=== PATIENT | male | born 1935 | race Caucasian/White ===

== ENCOUNTER 2023-10-22 04:31 | Inpatient (IN) | payer OTHER ==
[2023-10-22] MEDS ORDERED: SODIUM CHLORIDE 1,361 ML IV ONE (04:48)
[2023-10-22] MEDS ORDERED: CALCIUM GLUCONATE 10% - 1,000 MG/10 ML VIAL IVPUSH ONE (04:53)
[2023-10-22] MEDS ORDERED: RAPID SEQUENCE INTUBATION KIT NR ONE (04:57)
[2023-10-22] MEDS ORDERED: CALCIUM GLUCONATE 10% - 1,000 MG/10 ML VIAL ONE (05:00)
[2023-10-22] MEDS ORDERED: VANCOMYCIN 1,000 MG in DEXTROSE 5%-WATER - 250 ML IVPB ONE (05:01)
[2023-10-22] MEDS ORDERED: AZITHROMYCIN IVPB 500 MG in DEXTROSE 5%-WATER - 250 ML IVPB ONE (05:01)
[2023-10-22] MEDS ORDERED: CEFTRIAXONE 1,000 MG in DEXTROSE 5%-WATER - 50 ML IVPB ONE (05:01)
[2023-10-22] MEDS ORDERED: PIPERACILLIN/TAZOB 4.5 GM 4.5 GM in DEXTROSE 5%-WATER 100 ML IVPB ONE (05:01)
[2023-10-22] MEDS ORDERED: PIPERACILLIN/TAZOB 3.375 GM 3.375 GM in DEXTROSE 5%-WATER - 50 ML IVPB ONE (05:06)
[2023-10-22] MEDS ORDERED: PIPERACILLIN/TAZOB 3.375 GM 3.375 GM/50 ML BAG IVPB ONE (05:06)
[2023-10-22 05:07] LABS: MEAN PLT VOLUME 8.1 fl (7.5-11.1)
[2023-10-22] MEDS ORDERED: VANCOMYCIN 1 GRAM (PRE-DOCKED) 1,000 MG/250 ML BAG IVPB ONE (05:18)
[2023-10-22 05:25] LABS: CHLORIDE 119 mmol/L (98-107); POTASSIUM 5.5 mmol/L (3.5-5.1); SODIUM 148 mmol/L (136-145)
[2023-10-22 05:27] LABS: HEMATOCRIT 35.2 % (35.4-49); HEMOGLOBIN 11.3 GM/dL (11.7-16.9); MCH 28.8 pg (25.7-33.7); MCHC 32.1 g/dl (32.0-35.9); MEAN CELL VOLUME 89.6 fl (80-96); PLATELET COUNT 363 10^3/uL (134-434); RBC 3.92 M/mm3 (4.00-5.60); RDW 18.9 % (11.9-15.9); WHITE BLOOD COUNT 23.6 K/mm3 (4.0-10.0)
[2023-10-22 05:27] LABS: ALBUMIN 2.9 g/dl (3.4-5.0); ANION GAP 13 mmol/L (4-13); CALCIUM 10.5 mg/dL (8.5-10.1); CO2 16 mmol/L (21-32); GLUCOSE,RANDOM 115 mg/dL (74-106)
[2023-10-22 05:31] LABS: CREATININE 6.8 mg/dL (0.55-1.3); SGOT/AST 7 U/L (15-37); SGPT/ALT 6 U/L (13-61)
[2023-10-22 05:33] LABS: BILIRUBIN,TOTAL 0.3 mg/dL (0.2-1); TOT PROT 7.2 g/dl (6.4-8.2)
[2023-10-22 05:34] LABS: ALK PHOS 71 U/L (45-117)
[2023-10-22 05:37] LABS: INR 1.32 (0.83-1.09); PROTHROMBIN TIME (PATIENT) 15.3 SEC (9.7-13.0)
[2023-10-22 05:58] LABS: EPI CELLS 24 /uL (0-25.1); HYALINE CASTS 2 /uL (0-3.1); URINE APPEARANCE CLOUDY; URINE BACTERIA 2 /uL (0-1359); URINE BILIRUBIN NEGATIVE (NEGATIVE); URINE COLOR YELLOW; URINE GLUCOSE (UA) NEGATIVE (NEGATIVE); URINE KETONE NEGATIVE (NEGATIVE); URINE LEUK ESTERASE NEGATIVE (NEGATIVE); URINE NITRITE NEGATIVE (NEGATIVE); URINE PROTEIN 2+ (NEGATIVE); URINE RBC 20 /uL (0-23.9); URINE UROBILINOGEN 0.2 mg/dL (0.2-1.0); URINE WBC 30 /uL (0-25.8)
[2023-10-22 06:06] LABS: VENOUS BASE EXCESS -18.3 mmol/L (-2-2); VENOUS O2 SATURATION 69.4 % (70-80); VENOUS PCO2 62.4 mmHg (38-52)
[2023-10-22 06:27] LABS: VENOUS PH 6.96 (7.310-7.410)
[2023-10-22] MEDS ORDERED: ALBUTEROL SO4 0.083% IH SOL 2.5 MG/3 ML VIAL.NEB. NEB ONE ×2 (06:49→07:39)
[2023-10-22] MEDS ORDERED: SODIUM BICARBONATE 8.4% - 150 MEQ in DEXTROSE 5%-WATER - 950 ML IVPB SCH (07:00)
[2023-10-22 07:04] LABS: BLOOD UREA NITROGEN 167.8 mg/dL (7-18)
[2023-10-22] MEDS ORDERED: HEPARIN NA (PORCINE) 5,000 UNITS/ML 1ML VIAL SQ SCH (07:15)
[2023-10-22] MEDS ORDERED: DEXTROSE 5%-WATER - 1,000 ML IV SCH (07:30)
[2023-10-22] MEDS ORDERED: HEPARIN NA (PORCINE) 5,000 UNITS/ML 1ML VIAL ONE (07:39)
[2023-10-22 08:26] LABS: ARTERIAL BLOOD GAS BASE EXCESS -15.7 mmol/L (-2-2); ARTERIAL BLOOD GAS PO2 200.2 mmHg (80-100)
[2023-10-22 08:27] LABS: ALLENS TEST POSITIVE
[2023-10-22 08:28] LABS: VENT MODE EPAP6; VENT RATE 14
[2023-10-22 08:29] LABS: ARTERIAL BLOOD GAS pH 7.136 (7.350-7.450)
[2023-10-22 08:55] LABS: VENOUS O2 SATURATION 93.4 % (70-80); VENOUS PCO2 43.5 mmHg (38-52)
[2023-10-22 08:57] LABS: VENOUS PH 7.072 (7.310-7.410)
[2023-10-22] MEDS ORDERED: SODIUM BICARBONATE 8.4% - 150 MEQ in DEXTROSE 5%-WATER - 1,000 ML IV SCH (09:15)
[2023-10-22 09:57] LABS: ANISOCYTOSIS 1+; MACROCYTOSIS 0
[2023-10-22] MEDS ORDERED: PANTOPRAZOLE SODIUM 40 MG VIAL IVPUSH SCH (10:00)
[2023-10-22] MEDS ORDERED: SODIUM BICARBONATE 8.4% 50 MEQ/50 ML VIAL ONE (11:37)
[2023-10-22] MEDS ORDERED: SODIUM BICARBONATE 8.4% 50 MEQ/50 ML DISP.SYRIN IVPUSH ONE (11:59)
[2023-10-22] MEDS ORDERED: SODIUM CHLORIDE 250 ML IV PRN ×2 (11:59→13:00)
[2023-10-22] MEDS ORDERED: SODIUM CHLORIDE 1,000 ML IV STA (11:59)
[2023-10-22] MEDS: NOREPINEPHRINE BITARTRATE/D5W 8 MG/250 ML BAG IVPB SCH (12:48)
[2023-10-22] MEDS ORDERED: MUPIROCIN 2% TOPICAL OINTMENT FOR DECOLONIZATION NS SCH (13:30)
[2023-10-22 16:35] LABS: ARTERIAL BLD GAS O2 SATURATION 99.4 % (95-98); ARTERIAL BLOOD GAS BASE EXCESS -0.3 mmol/L (-2-2); ARTERIAL BLOOD GAS PO2 211.2 mmHg (80-100); ARTERIAL BLOOD GAS pH 7.411 (7.350-7.450)
[2023-10-22 16:42] LABS: POTASSIUM 3.3 mmol/L (3.5-5.1)
[2023-10-22 16:47] LABS: CREATININE 2.6 mg/dL (0.55-1.3)
[2023-10-22 16:51] LABS: BLOOD UREA NITROGEN 48.4 mg/dL (7-18); CALCIUM 7.9 mg/dL (8.5-10.1)
[2023-10-22] MEDS ORDERED: SODIUM CHLORIDE 1,000 ML IV SCH (17:00)
[2023-10-22] MEDS ORDERED: LACTATED RINGERS SOLUTION 1,000 ML/1,000 ML INFUS.BAG IV SCH (17:00)
[2023-10-22] MEDS: PIPERACILLIN/TAZOB 2.25 GM 2.25 GM in DEXTROSE 5%-WATER - 50 ML IVPB SCH (17:09)
[2023-10-22] MEDS: HEPARIN NA (PORCINE) 5,000 UNITS/ML 1ML VIAL SQ SCH (21:24)
[2023-10-22] MEDS: CHLORHEXIDINE GLUCONATE 4% CLEANSER FOR DECOLONIZATION TP SCH (21:25)
[2023-10-22] MEDS: MUPIROCIN 2% TOPICAL OINTMENT FOR DECOLONIZATION NS SCH (21:26)
[2023-10-22] MEDS ORDERED: CHLORHEXIDINE GLUCONATE 4% CLEANSER FOR DECOLONIZATION TP SCH (22:00)
[2023-10-22 22:14] LABS: ARTERIAL BLD GAS O2 SATURATION 98.6 % (95-98); ARTERIAL BLOOD GAS BASE EXCESS 0.4 mmol/L (-2-2); ARTERIAL BLOOD GAS PO2 128.8 mmHg (80-100); ARTERIAL BLOOD GAS pH 7.408 (7.350-7.450)
[2023-10-23] MEDS: PIPERACILLIN/TAZOB 2.25 GM 2.25 GM in DEXTROSE 5%-WATER - 50 ML IVPB SCH ×3 (02:07→18:48)
[2023-10-23] MEDS ORDERED: DEXTROSE 50%-WATER 25 GM/50 ML DISP.SYRIN ONE (04:19)
[2023-10-23] MEDS ORDERED: DEXTROSE 50%-WATER 25 GM/50 ML DISP.SYRIN IVPUSH ONE (05:29)
[2023-10-23 06:14] LABS: ARTERIAL BLOOD GAS BASE EXCESS -2.1 mmol/L (-2-2); ARTERIAL BLOOD GAS PO2 160.6 mmHg (80-100); ARTERIAL BLOOD GAS pH 7.382 (7.350-7.450)
[2023-10-23 06:28] LABS: VENT MODE S/T; VENT RATE 14
[2023-10-23] MEDS ORDERED: DEXTROSE 50%-WATER - 25 GM/50 ML VIAL IVPUSH ONE (06:55)
[2023-10-23 07:00] LABS: HEMATOCRIT 25.1 % (35.4-49); HEMOGLOBIN 8.3 GM/dL (11.7-16.9); MCHC 33.2 g/dl (32.0-35.9); MEAN CELL VOLUME 87.2 fl (80-96); MEAN PLT VOLUME 7.9 fl (7.5-11.1); PLATELET COUNT 203 10^3/uL (134-434); RBC 2.88 M/mm3 (4.00-5.60); RDW 18.2 % (11.9-15.9); WHITE BLOOD COUNT 15.4 K/mm3 (4.0-10.0)
[2023-10-23 07:11] LABS: INR 1.69 (0.83-1.09); PROTHROMBIN TIME (PATIENT) 19.5 SEC (9.7-13.0)
[2023-10-23 07:13] LABS: ACTIVATED PTT 49.1 SECONDS (25.2-36.5)
[2023-10-23] MEDS: DEXTROSE 5%-NORMAL SALINE 1,000 ML IV SCH (07:14)
[2023-10-23 07:18] LABS: CHLORIDE 108 mmol/L (98-107); POTASSIUM 4.2 mmol/L (3.5-5.1); SODIUM 143 mmol/L (136-145)
[2023-10-23 07:35] LABS: ANION GAP 12 mmol/L (4-13); CALCIUM 8.1 mg/dL (8.5-10.1); CO2 24 mmol/L (21-32); GLUCOSE,RANDOM 178 mg/dL (74-106); MAGNESIUM 1.5 mg/dL (1.8-2.4)
[2023-10-23 07:38] LABS: CREATININE 4.1 mg/dL (0.55-1.3); PHOSPHOROUS 6.5 mg/dL (2.5-4.9); SGOT/AST 11 U/L (15-37)
[2023-10-23 07:39] LABS: BILIRUBIN,TOTAL 0.3 mg/dL (0.2-1); TOT PROT 5.4 g/dl (6.4-8.2)
[2023-10-23 07:40] LABS: ALK PHOS 43 U/L (45-117)
[2023-10-23 07:49] LABS: ALBUMIN 2.3 g/dl (3.4-5.0); BLOOD UREA NITROGEN 74.1 mg/dL (7-18); SGPT/ALT < 6 U/L (13-61)
[2023-10-23] MEDS ORDERED: MAGNESIUM 2GM/50ML STERILE WATER IVPB IVPB ONE (08:45)
[2023-10-23 09:02] LABS: ANISOCYTOSIS 0; MACROCYTOSIS 0
[2023-10-23] MEDS: PANTOPRAZOLE SODIUM 40 MG VIAL IVPUSH SCH (09:24)
[2023-10-23] MEDS: HEPARIN NA (PORCINE) 5,000 UNITS/ML 1ML VIAL SQ SCH ×2 (09:24→21:14)
[2023-10-23] MEDS: MUPIROCIN 2% TOPICAL OINTMENT FOR DECOLONIZATION NS SCH ×2 (09:47→21:14)
[2023-10-23] MEDS ORDERED: MAGNESIUM SULFATE IN WATER 2 GM/50 ML IVPB IVPB ONE (10:00)
[2023-10-23 13:27] LABS: IRON SERUM 18 ug/dL (50-175); TOTAL IRON BINDING CAPACITY 133 ug/dL (250-450)
[2023-10-23] MEDS ORDERED: IRON SUCROSE INJECTION 300 MG in SODIUM CHLORIDE 235 ML IVPB ONE (15:00)
[2023-10-23] MEDS: NOREPINEPHRINE BITARTRATE/D5W 8 MG/250 ML BAG IVPB SCH (15:07)
[2023-10-23] MEDS: SCOPOLAMINE HYDROBROMIDE 1 PATCH PATCH.TD72 TD SCH (15:50)
[2023-10-23] MEDS ORDERED: EPOETIN ALFA-EPBX 20,000 UNIT/ML VIAL SQ ONE (16:08)
[2023-10-23] MEDS: CHLORHEXIDINE GLUCONATE 4% CLEANSER FOR DECOLONIZATION TP SCH (21:14)
[2023-10-24] MEDS: PIPERACILLIN/TAZOB 2.25 GM 2.25 GM in DEXTROSE 5%-WATER - 50 ML IVPB SCH ×3 (01:20→17:05)
[2023-10-24 06:53] LABS: ARTERIAL BLD GAS O2 SATURATION 98.2 % (95-98); ARTERIAL BLOOD GAS BASE EXCESS -11.3 mmol/L (-2-2); ARTERIAL BLOOD GAS PO2 146.6 mmHg (80-100)
[2023-10-24 07:00] LABS: VENT RATE 14
[2023-10-24] MEDS ORDERED: SODIUM CHLORIDE 250 ML IV PRN (07:00)
[2023-10-24 07:02] LABS: ARTERIAL BLOOD GAS pH 7.157 (7.350-7.450)
[2023-10-24 07:22] LABS: BASO % 0.1 % (0-2.0); EOS % 0.4 % (0-4.5); HEMATOCRIT 25.1 % (35.4-49); HEMOGLOBIN 8.1 GM/dL (11.7-16.9); LYMPH % 5.6 % (8-40); MCH 28.8 pg (25.7-33.7); MCHC 32.2 g/dl (32.0-35.9); MEAN CELL VOLUME 89.5 fl (80-96); NEUT % 89.9 % (42.8-82.8); PLATELET COUNT 181 10^3/uL (134-434); RBC 2.81 M/mm3 (4.00-5.60); RDW 18.3 % (11.9-15.9); WHITE BLOOD COUNT 13.9 K/mm3 (4.0-10.0)
[2023-10-24 08:10] LABS: CHLORIDE 114 mmol/L (98-107); POTASSIUM 4.8 mmol/L (3.5-5.1); SODIUM 148 mmol/L (136-145)
[2023-10-24 08:14] LABS: ANION GAP 10 mmol/L (4-13); CALCIUM 8.9 mg/dL (8.5-10.1); CO2 24 mmol/L (21-32); GLUCOSE,RANDOM 79 mg/dL (74-106); MAGNESIUM 2.3 mg/dL (1.8-2.4)
[2023-10-24 08:16] LABS: CREATININE 5.2 mg/dL (0.55-1.3); SGOT/AST 10 U/L (15-37)
[2023-10-24 08:19] LABS: ALK PHOS 36 U/L (45-117); BILIRUBIN,TOTAL 0.3 mg/dL (0.2-1); TOT PROT 5.1 g/dl (6.4-8.2)
[2023-10-24 08:34] LABS: SGPT/ALT < 6 U/L (13-61)
[2023-10-24 08:41] LABS: PHOSPHOROUS 8.5 mg/dL (2.5-4.9)
[2023-10-24] MEDS: DEXTROSE 5%-NORMAL SALINE 1,000 ML IV SCH (09:45)
[2023-10-24] MEDS: HEPARIN NA (PORCINE) 5,000 UNITS/ML 1ML VIAL SQ SCH ×2 (09:45→21:05)
[2023-10-24] MEDS: MUPIROCIN 2% TOPICAL OINTMENT FOR DECOLONIZATION NS SCH ×2 (09:45→21:05)
[2023-10-24] MEDS: PANTOPRAZOLE SODIUM 40 MG VIAL IVPUSH SCH (09:45)
[2023-10-24] MEDS ORDERED: IRON SUCROSE INJECTION 300 MG in SODIUM CHLORIDE 235 ML IVPB ONE (10:00)
[2023-10-24] MEDS ORDERED: EPOETIN ALFA-EPBX 10,000 UNIT/ML VIAL IVPUSH ONE (11:00)
[2023-10-24] MEDS: AMINO ACIDS 4.25%/D5W 1,000 ML IV SCH (11:39)
[2023-10-24] MEDS: methylPREDNISolone NA SUCC 40 MG/1 ML VIAL IVPUSH SCH (11:39)
[2023-10-24 12:00] LABS: ARTERIAL BLD GAS O2 SATURATION 99.3 % (95-98); ARTERIAL BLOOD GAS BASE EXCESS -3.2 mmol/L (-2-2); ARTERIAL BLOOD GAS PO2 231.3 mmHg (80-100); ARTERIAL BLOOD GAS pH 7.201 (7.350-7.450)
[2023-10-24 12:01] LABS: ALLENS TEST POSITIVE
[2023-10-24] MEDS: NOREPINEPHRINE BITARTRATE/D5W 8 MG/250 ML BAG IVPB SCH (13:10)
[2023-10-24 19:23] LABS: ARTERIAL BLD GAS O2 SATURATION 98.6 % (95-98); ARTERIAL BLOOD GAS BASE EXCESS -2.1 mmol/L (-2-2); ARTERIAL BLOOD GAS PO2 142.1 mmHg (80-100); ARTERIAL BLOOD GAS pH 7.331 (7.350-7.450)
[2023-10-24 19:28] LABS: VENT RATE 22
[2023-10-24] MEDS: CHLORHEXIDINE GLUCONATE 4% CLEANSER FOR DECOLONIZATION TP SCH (21:05)
[2023-10-25] MEDS: PIPERACILLIN/TAZOB 2.25 GM 2.25 GM in DEXTROSE 5%-WATER - 50 ML IVPB SCH ×3 (02:21→17:07)
[2023-10-25 05:34] LABS: ARTERIAL BLD GAS O2 SATURATION 97.3 % (95-98); ARTERIAL BLOOD GAS PO2 105.3 mmHg (80-100); ARTERIAL BLOOD GAS pH 7.308 (7.350-7.450)
[2023-10-25 05:39] LABS: VENT RATE 22
[2023-10-25 05:54] LABS: HEMATOCRIT 24.7 % (35.4-49); MCH 28.9 pg (25.7-33.7); MCHC 32.4 g/dl (32.0-35.9); MEAN PLT VOLUME 7.8 fl (7.5-11.1); PLATELET COUNT 182 10^3/uL (134-434); RBC 2.77 M/mm3 (4.00-5.60); WHITE BLOOD COUNT 18.9 K/mm3 (4.0-10.0)
[2023-10-25 06:25] LABS: POTASSIUM 4.2 mmol/L (3.5-5.1)
[2023-10-25 06:28] LABS: ALBUMIN 1.8 g/dl (3.4-5.0); CALCIUM 8.6 mg/dL (8.5-10.1); MAGNESIUM 2.2 mg/dL (1.8-2.4)
[2023-10-25 06:31] LABS: CREATININE 3.5 mg/dL (0.55-1.3); PHOSPHOROUS 6.7 mg/dL (2.5-4.9)
[2023-10-25 06:33] LABS: BILIRUBIN,TOTAL 0.3 mg/dL (0.2-1); TOT PROT 5.1 g/dl (6.4-8.2)
[2023-10-25 06:48] LABS: BLOOD UREA NITROGEN 57.6 mg/dL (7-18)
[2023-10-25 09:04] LABS: ANISOCYTOSIS 0; HELMET CELLS 0; HOWELL-JOLLY BODIES 0; MACROCYTOSIS 0; OVALOCYTE 0; ROULEAU 0; SICKELED CELLS 0; TARGET CELLS 0; TEAR DROP CELLS 0; TOXIC GRANULATION 0
[2023-10-25] MEDS: methylPREDNISolone NA SUCC 40 MG/1 ML VIAL IVPUSH SCH (09:07)
[2023-10-25] MEDS: PANTOPRAZOLE SODIUM 40 MG VIAL IVPUSH SCH (09:07)
[2023-10-25] MEDS: HEPARIN NA (PORCINE) 5,000 UNITS/ML 1ML VIAL SQ SCH ×2 (09:07→21:19)
[2023-10-25] MEDS: MUPIROCIN 2% TOPICAL OINTMENT FOR DECOLONIZATION NS SCH ×2 (09:08→21:18)
[2023-10-25] MEDS: AMINO ACIDS 4.25%/D5W 1,000 ML IV SCH (10:31)
[2023-10-25] MEDS ORDERED: DEXTROSE 50%-WATER - 25 GM/50 ML VIAL IVPUSH ONE (14:42)
[2023-10-25] MEDS ORDERED: DEXTROSE 50%-WATER 25 GM/50 ML DISP.SYRIN ONE (14:48)
[2023-10-25] MEDS: NOREPINEPHRINE BITARTRATE/D5W 8 MG/250 ML BAG IVPB SCH (21:18)
[2023-10-25] MEDS: CHLORHEXIDINE GLUCONATE 4% CLEANSER FOR DECOLONIZATION TP SCH (21:19)
[2023-10-26] MEDS: PIPERACILLIN/TAZOB 2.25 GM 2.25 GM in DEXTROSE 5%-WATER - 50 ML IVPB SCH ×3 (01:45→17:20)
[2023-10-26] MEDS ORDERED: SODIUM CHLORIDE 250 ML IV PRN (09:00)
[2023-10-26] MEDS: ALBUMIN HUMAN 25% 12.5 GM/50 ML VIAL IV SCH ×4 (09:00→10:30)
[2023-10-26] MEDS ORDERED: EPOETIN ALFA-EPBX 10,000 UNIT/ML VIAL IVPUSH ONE (09:00)
[2023-10-26 09:40] LABS: POTASSIUM 4.1 mmol/L (3.5-5.1)
[2023-10-26 09:42] LABS: HEMATOCRIT 21.7 % (35.4-49); HEMOGLOBIN 7.1 GM/dL (11.7-16.9); MCH 28.6 pg (25.7-33.7); MCHC 32.7 g/dl (32.0-35.9); MEAN CELL VOLUME 87.6 fl (80-96); MEAN PLT VOLUME 8.1 fl (7.5-11.1); PLATELET COUNT 173 10^3/uL (134-434); RBC 2.48 M/mm3 (4.00-5.60); RDW 17.6 % (11.9-15.9); WHITE BLOOD COUNT 19.1 K/mm3 (4.0-10.0)
[2023-10-26 09:43] LABS: ALBUMIN 1.8 g/dl (3.4-5.0); CALCIUM 8.6 mg/dL (8.5-10.1)
[2023-10-26 09:45] LABS: MAGNESIUM 1.7 mg/dL (1.8-2.4)
[2023-10-26 09:46] LABS: CREATININE 4.6 mg/dL (0.55-1.3); PHOSPHOROUS 6.5 mg/dL (2.5-4.9)
[2023-10-26 09:47] LABS: BILIRUBIN,TOTAL 0.3 mg/dL (0.2-1); TOT PROT 4.8 g/dl (6.4-8.2)
[2023-10-26 09:52] LABS: BLOOD UREA NITROGEN 97.7 mg/dL (7-18)
[2023-10-26] MEDS ORDERED: MAGNESIUM SULFATE IN WATER 2 GM/50 ML IVPB IVPB ONE (09:54)
[2023-10-26 10:47] LABS: ANISOCYTOSIS 2+; MACROCYTOSIS 0
[2023-10-26] MEDS: MUPIROCIN 2% TOPICAL OINTMENT FOR DECOLONIZATION NS SCH ×2 (11:04→22:19)
[2023-10-26] MEDS: methylPREDNISolone NA SUCC 40 MG/1 ML VIAL IVPUSH SCH (11:04)
[2023-10-26] MEDS: PANTOPRAZOLE SODIUM 40 MG VIAL IVPUSH SCH (11:05)
[2023-10-26] MEDS: HEPARIN NA (PORCINE) 5,000 UNITS/ML 1ML VIAL SQ SCH ×2 (11:05→22:19)
[2023-10-26] MEDS: AMINO ACIDS 4.25%/D5W 1,000 ML IV SCH (11:05)
[2023-10-26] MEDS: NOREPINEPHRINE BITARTRATE/D5W 8 MG/250 ML BAG IVPB SCH (11:06)
[2023-10-26] MEDS: SCOPOLAMINE HYDROBROMIDE 1 PATCH PATCH.TD72 TD SCH (17:20)
[2023-10-26] MEDS: CHLORHEXIDINE GLUCONATE 4% CLEANSER FOR DECOLONIZATION TP SCH (22:19)
[2023-10-27] MEDS: PIPERACILLIN/TAZOB 2.25 GM 2.25 GM in DEXTROSE 5%-WATER - 50 ML IVPB SCH ×3 (01:28→17:04)
[2023-10-27 07:11] LABS: HEMATOCRIT 22.2 % (35.4-49); HEMOGLOBIN 7.2 GM/dL (11.7-16.9); MCH 28.8 pg (25.7-33.7); MCHC 32.5 g/dl (32.0-35.9); MEAN CELL VOLUME 88.7 fl (80-96); MEAN PLT VOLUME 8.2 fl (7.5-11.1); PLATELET COUNT 173 10^3/uL (134-434); WHITE BLOOD COUNT 17.8 K/mm3 (4.0-10.0)
[2023-10-27 07:30] LABS: POTASSIUM 3.4 mmol/L (3.5-5.1)
[2023-10-27 08:02] LABS: ALBUMIN 1.7 g/dl (3.4-5.0); CALCIUM 8.1 mg/dL (8.5-10.1); MAGNESIUM 2.5 mg/dL (1.8-2.4)
[2023-10-27 08:05] LABS: CREATININE 3.3 mg/dL (0.55-1.3); PHOSPHOROUS 4.1 mg/dL (2.5-4.9)
[2023-10-27 08:07] LABS: BILIRUBIN,TOTAL 0.4 mg/dL (0.2-1); TOT PROT 4.7 g/dl (6.4-8.2)
[2023-10-27 08:18] LABS: BLOOD UREA NITROGEN 62.6 mg/dL (7-18)
[2023-10-27] MEDS: HEPARIN NA (PORCINE) 5,000 UNITS/ML 1ML VIAL SQ SCH ×2 (09:04→21:00)
[2023-10-27] MEDS: methylPREDNISolone NA SUCC 40 MG/1 ML VIAL IVPUSH SCH (09:04)
[2023-10-27] MEDS: PANTOPRAZOLE SODIUM 40 MG VIAL IVPUSH SCH (09:04)
[2023-10-27 09:16] LABS: ANISOCYTOSIS 3+; MACROCYTOSIS 0
[2023-10-27] MEDS: AMINO ACIDS 4.25%/D5W 1,000 ML IV SCH ×2 (09:27→10:57)
[2023-10-27] MEDS ORDERED: MUPIROCIN 2% TOPICAL OINTMENT FOR DECOLONIZATION NS SCH (10:00)
[2023-10-27] MEDS ORDERED: DEXTROSE 50%-WATER 25 GM/50 ML DISP.SYRIN ONE (11:13)
[2023-10-27] MEDS ORDERED: DEXTROSE 50%-WATER 25 GM/50 ML DISP.SYRIN IVPUSH ONE (11:30)
[2023-10-27] MEDS ORDERED: INSULIN (LEVEMIR) 100 UNITS/ML UNITS SQ ONE (16:19)
[2023-10-27] MEDS: CHLORHEXIDINE GLUCONATE 4% CLEANSER FOR DECOLONIZATION TP SCH (21:00)
[2023-10-28] MEDS: PIPERACILLIN/TAZOB 2.25 GM 2.25 GM in DEXTROSE 5%-WATER - 50 ML IVPB SCH ×2 (01:23→12:45)
[2023-10-28 07:34] LABS: HEMATOCRIT 24.4 % (35.4-49); HEMOGLOBIN 7.9 GM/dL (11.7-16.9); MCH 28.9 pg (25.7-33.7); MCHC 32.3 g/dl (32.0-35.9); MEAN CELL VOLUME 89.3 fl (80-96); MEAN PLT VOLUME 8.8 fl (7.5-11.1); PLATELET COUNT 208 10^3/uL (134-434); RBC 2.74 M/mm3 (4.00-5.60); RDW 16.2 % (11.9-15.9); WHITE BLOOD COUNT 23.8 K/mm3 (4.0-10.0)
[2023-10-28 08:01] LABS: POTASSIUM 3.5 mmol/L (3.5-5.1)
[2023-10-28 08:17] LABS: ALBUMIN 1.8 g/dl (3.4-5.0); CALCIUM 8.5 mg/dL (8.5-10.1); MAGNESIUM 2.7 mg/dL (1.8-2.4)
[2023-10-28 08:20] LABS: CREATININE 4.4 mg/dL (0.55-1.3)
[2023-10-28 08:22] LABS: BILIRUBIN,TOTAL 0.4 mg/dL (0.2-1); TOT PROT 5.2 g/dl (6.4-8.2)
[2023-10-28 08:24] LABS: BLOOD UREA NITROGEN 97.3 mg/dL (7-18)
[2023-10-28 08:54] LABS: ANISOCYTOSIS 1+; MACROCYTOSIS 1+; OVALOCYTE 1+
[2023-10-28] MEDS ORDERED: SODIUM CHLORIDE 250 ML IV PRN (09:00)
[2023-10-28 09:10] LABS: PLATELET ESTIMATE ADEQUATE
[2023-10-28] MEDS: AMINO ACIDS 4.25%/D5W 1,000 ML IV SCH ×2 (09:43→12:46)
[2023-10-28] MEDS ORDERED: EPOETIN ALFA-EPBX 10,000 UNIT/ML VIAL IVPUSH ONE (10:00)
[2023-10-28] MEDS: methylPREDNISolone NA SUCC 40 MG/1 ML VIAL IVPUSH SCH (12:46)
[2023-10-28] MEDS: PANTOPRAZOLE SODIUM 40 MG VIAL IVPUSH SCH (12:46)
[2023-10-28] MEDS: HEPARIN NA (PORCINE) 5,000 UNITS/ML 1ML VIAL SQ SCH ×2 (12:46→22:38)
[2023-10-28] MEDS ORDERED: PIPERACILLIN/TAZOBACTAM 2.25 GM VIAL IVPB ONE (22:15)
[2023-10-28] MEDS: CHLORHEXIDINE GLUCONATE 4% CLEANSER FOR DECOLONIZATION TP SCH (22:38)
[2023-10-29] MEDS: PIPERACILLIN/TAZOB 2.25 GM 2.25 GM in DEXTROSE 5%-WATER - 50 ML IVPB SCH ×3 (01:08→18:15)
[2023-10-29 06:52] LABS: HEMATOCRIT 23.8 % (35.4-49); HEMOGLOBIN 7.6 GM/dL (11.7-16.9); MCH 28.3 pg (25.7-33.7); MCHC 31.7 g/dl (32.0-35.9); MEAN CELL VOLUME 89.4 fl (80-96); MEAN PLT VOLUME 9.4 fl (7.5-11.1); PLATELET COUNT 250 10^3/uL (134-434); RBC 2.67 M/mm3 (4.00-5.60); RDW 15.8 % (11.9-15.9); WHITE BLOOD COUNT 23.8 K/mm3 (4.0-10.0)
[2023-10-29 07:03] LABS: POTASSIUM 3.5 mmol/L (3.5-5.1)
[2023-10-29 07:13] LABS: CALCIUM 8.1 mg/dL (8.5-10.1)
[2023-10-29 07:14] LABS: ALBUMIN 1.8 g/dl (3.4-5.0); MAGNESIUM 1.9 mg/dL (1.8-2.4)
[2023-10-29 07:17] LABS: CREATININE 3.2 mg/dL (0.55-1.3); PHOSPHOROUS 3.8 mg/dL (2.5-4.9)
[2023-10-29 07:18] LABS: TOT PROT 4.9 g/dl (6.4-8.2)
[2023-10-29 07:19] LABS: BILIRUBIN,TOTAL 0.4 mg/dL (0.2-1)
[2023-10-29 07:21] LABS: BLOOD UREA NITROGEN 59.7 mg/dL (7-18)
[2023-10-29] MEDS: HEPARIN NA (PORCINE) 5,000 UNITS/ML 1ML VIAL SQ SCH ×2 (11:34→21:38)
[2023-10-29] MEDS: methylPREDNISolone NA SUCC 40 MG/1 ML VIAL IVPUSH SCH (11:35)
[2023-10-29] MEDS: PANTOPRAZOLE SODIUM 40 MG VIAL IVPUSH SCH (11:35)
[2023-10-29 11:46] LABS: ANISOCYTOSIS 0; HELMET CELLS 0; HOWELL-JOLLY BODIES 0; MACROCYTOSIS 0; OVALOCYTE 0; ROULEAU 0; SICKELED CELLS 0; TARGET CELLS 0; TEAR DROP CELLS 0; TOXIC GRANULATION 0
[2023-10-29] MEDS: AMINO ACIDS 4.25%/D5W 1,000 ML IV SCH (15:26)
[2023-10-29] MEDS: SCOPOLAMINE HYDROBROMIDE 1 PATCH PATCH.TD72 TD SCH (16:22)
[2023-10-29] MEDS: CHLORHEXIDINE GLUCONATE 4% CLEANSER FOR DECOLONIZATION TP SCH (21:39)
[2023-10-30] MEDS: PIPERACILLIN/TAZOB 2.25 GM 2.25 GM in DEXTROSE 5%-WATER - 50 ML IVPB SCH ×4 (02:44→18:47)
[2023-10-30 07:36] LABS: HEMATOCRIT 26.1 % (35.4-49); HEMOGLOBIN 8.3 GM/dL (11.7-16.9); MCH 28.3 pg (25.7-33.7); MCHC 31.8 g/dl (32.0-35.9); MEAN PLT VOLUME 9.5 fl (7.5-11.1); PLATELET COUNT 337 10^3/uL (134-434); RBC 2.93 M/mm3 (4.00-5.60); WHITE BLOOD COUNT 21.7 K/mm3 (4.0-10.0)
[2023-10-30 08:14] VITALS: BMI 15.6
[2023-10-30 08:31] LABS: POTASSIUM 3.6 mmol/L (3.5-5.1)
[2023-10-30 08:32] LABS: CALCIUM 8.4 mg/dL (8.5-10.1)
[2023-10-30 08:33] LABS: MAGNESIUM 2.1 mg/dL (1.8-2.4)
[2023-10-30 08:36] LABS: CREATININE 4.3 mg/dL (0.55-1.3); PHOSPHOROUS 5.7 mg/dL (2.5-4.9)
[2023-10-30 08:37] LABS: BILIRUBIN,TOTAL 0.4 mg/dL (0.2-1); TOT PROT 5.2 g/dl (6.4-8.2)
[2023-10-30 08:44] LABS: BLOOD UREA NITROGEN 93.9 mg/dL (7-18)
[2023-10-30 10:22] LABS: ANISOCYTOSIS 0; MACROCYTOSIS 0
[2023-10-30] MEDS: PANTOPRAZOLE SODIUM 40 MG VIAL IVPUSH SCH (12:32)
[2023-10-30] MEDS: methylPREDNISolone NA SUCC 40 MG/1 ML VIAL IVPUSH SCH (12:32)
[2023-10-30] MEDS: AMINO ACIDS 4.25%/D5W 1,000 ML IV SCH (12:33)
[2023-10-30] MEDS: HEPARIN NA (PORCINE) 5,000 UNITS/ML 1ML VIAL SQ SCH ×2 (12:33→22:05)
[2023-10-30] MEDS ORDERED: SODIUM CHLORIDE 250 ML IV PRN (14:29)
[2023-10-30] MEDS ORDERED: DEXTROSE 50%-WATER 25 GM/50 ML DISP.SYRIN ONE (16:43)
[2023-10-30] MEDS ORDERED: DEXTROSE 50%-WATER 25 GM/50 ML DISP.SYRIN IVPUSH ONE (16:54)
[2023-10-30] MEDS: CHLORHEXIDINE GLUCONATE 4% CLEANSER FOR DECOLONIZATION TP SCH (22:05)
[2023-10-31] MEDS: PIPERACILLIN/TAZOB 2.25 GM 2.25 GM in DEXTROSE 5%-WATER - 50 ML IVPB SCH ×3 (02:02→18:04)
[2023-10-31 07:14] LABS: HEMATOCRIT 24.2 % (35.4-49); HEMOGLOBIN 7.8 GM/dL (11.7-16.9); MCH 28.8 pg (25.7-33.7); MCHC 32.4 g/dl (32.0-35.9); MEAN CELL VOLUME 89.1 fl (80-96); MEAN PLT VOLUME 9.3 fl (7.5-11.1); PLATELET COUNT 367 10^3/uL (134-434); RBC 2.72 M/mm3 (4.00-5.60); RDW 16.5 % (11.9-15.9); WHITE BLOOD COUNT 15.7 K/mm3 (4.0-10.0)
[2023-10-31] MEDS ORDERED: EPOETIN ALFA-EPBX 10,000 UNIT/ML VIAL IVPUSH ONE (07:30)
[2023-10-31 07:58] LABS: CHLORIDE 96 mmol/L (98-107); POTASSIUM 3.9 mmol/L (3.5-5.1); SODIUM 136 mmol/L (136-145)
[2023-10-31 08:11] LABS: CALCIUM 8.5 mg/dL (8.5-10.1)
[2023-10-31 08:12] LABS: ANION GAP 15 mmol/L (4-13); CO2 24 mmol/L (21-32); MAGNESIUM 2.1 mg/dL (1.8-2.4)
[2023-10-31 08:13] LABS: GLUCOSE,RANDOM 91 mg/dL (74-106)
[2023-10-31 08:15] LABS: CREATININE 5.1 mg/dL (0.55-1.3); PHOSPHOROUS 6.4 mg/dL (2.5-4.9); SGOT/AST 9 U/L (15-37); SGPT/ALT 11 U/L (13-61)
[2023-10-31 08:16] LABS: BILIRUBIN,TOTAL 0.4 mg/dL (0.2-1); TOT PROT 5.2 g/dl (6.4-8.2)
[2023-10-31 08:18] LABS: ALK PHOS 35 U/L (45-117)
[2023-10-31 08:22] LABS: BLOOD UREA NITROGEN 106.2 mg/dL (7-18)
[2023-10-31 10:37] LABS: ANISOCYTOSIS 1+; MACROCYTOSIS 0
[2023-10-31] MEDS: PANTOPRAZOLE SODIUM 40 MG VIAL IVPUSH SCH (12:20)
[2023-10-31] MEDS: methylPREDNISolone NA SUCC 40 MG/1 ML VIAL IVPUSH SCH (12:20)
[2023-10-31] MEDS: HEPARIN NA (PORCINE) 5,000 UNITS/ML 1ML VIAL SQ SCH ×2 (12:21→21:45)
[2023-10-31] MEDS: AMINO ACIDS 4.25%/D5W 1,000 ML IV SCH (15:55)
[2023-10-31] MEDS: AMINO ACIDS/PROTEIN HYDROLYS 30 ML LIQUID.PKT PO SCH (18:03)
[2023-10-31] MEDS: CHLORHEXIDINE GLUCONATE 4% CLEANSER FOR DECOLONIZATION TP SCH (21:46)
[2023-11-01] MEDS: PIPERACILLIN/TAZOB 2.25 GM 2.25 GM in DEXTROSE 5%-WATER - 50 ML IVPB SCH ×3 (02:43→17:52)
[2023-11-01 07:32] LABS: HEMATOCRIT 25.5 % (35.4-49); MCH 28.6 pg (25.7-33.7); MCHC 31.6 g/dl (32.0-35.9); MEAN CELL VOLUME 90.7 fl (80-96); MEAN PLT VOLUME 9.7 fl (7.5-11.1); PLATELET COUNT 433 10^3/uL (134-434); RBC 2.81 M/mm3 (4.00-5.60); RDW 16.3 % (11.9-15.9); WHITE BLOOD COUNT 20.5 K/mm3 (4.0-10.0)
[2023-11-01 07:41] LABS: POTASSIUM 3.7 mmol/L (3.5-5.1)
[2023-11-01 07:46] LABS: ALBUMIN 2.1 g/dl (3.4-5.0)
[2023-11-01 07:47] LABS: CALCIUM 8.4 mg/dL (8.5-10.1)
[2023-11-01 07:48] LABS: MAGNESIUM 2.1 mg/dL (1.8-2.4)
[2023-11-01 07:51] LABS: CREATININE 3.6 mg/dL (0.55-1.3); PHOSPHOROUS 4.1 mg/dL (2.5-4.9)
[2023-11-01 07:52] LABS: BILIRUBIN,TOTAL 0.4 mg/dL (0.2-1); TOT PROT 5.2 g/dl (6.4-8.2)
[2023-11-01 09:01] LABS: ANISOCYTOSIS 1+; MACROCYTOSIS 1+; OVALOCYTE 1+
[2023-11-01] MEDS: methylPREDNISolone NA SUCC 40 MG/1 ML VIAL IVPUSH SCH (09:26)
[2023-11-01] MEDS: AMINO ACIDS/PROTEIN HYDROLYS 30 ML LIQUID.PKT PO SCH ×3 (09:27→17:52)
[2023-11-01] MEDS: VITAMIN B COMP W-C 1 EA TABLET (NEPHRO-VITE) PO SCH (09:27)
[2023-11-01] MEDS: HEPARIN NA (PORCINE) 5,000 UNITS/ML 1ML VIAL SQ SCH ×2 (09:27→21:11)
[2023-11-01] MEDS: PANTOPRAZOLE SODIUM 40 MG VIAL IVPUSH SCH (09:27)
[2023-11-01] MEDS ORDERED: LIDOCAINE HCL 1%, 10 MG/ML (20ML VIAL) ONE (10:17)
[2023-11-01] MEDS ORDERED: HEPARIN NA (PORCINE) 5,000 UNITS/ML 1ML VIAL ONE (10:26)
[2023-11-01] MEDS: AMINO ACIDS 4.25%/D5W 1,000 ML IV SCH (11:30)
[2023-11-01] MEDS ORDERED: LIDOCAINE HCL 1%, 10 MG/ML (50 mL VIAL) SQ ONE (13:10)
[2023-11-01] MEDS: SCOPOLAMINE HYDROBROMIDE 1 PATCH PATCH.TD72 TD SCH (15:46)
[2023-11-01] MEDS: CHLORHEXIDINE GLUCONATE 4% CLEANSER FOR DECOLONIZATION TP SCH (21:12)
[2023-11-02] MEDS: PIPERACILLIN/TAZOB 2.25 GM 2.25 GM in DEXTROSE 5%-WATER - 50 ML IVPB SCH ×3 (02:20→18:31)
[2023-11-02 06:36] LABS: HEMATOCRIT 27.3 % (35.4-49); HEMOGLOBIN 8.7 GM/dL (11.7-16.9); MCHC 31.8 g/dl (32.0-35.9); MEAN CELL VOLUME 91.1 fl (80-96); PLATELET COUNT 473 10^3/uL (134-434); RDW 16.6 % (11.9-15.9); WHITE BLOOD COUNT 16.2 K/mm3 (4.0-10.0)
[2023-11-02 06:54] LABS: POTASSIUM 3.8 mmol/L (3.5-5.1)
[2023-11-02 07:02] LABS: CALCIUM 8.5 mg/dL (8.5-10.1)
[2023-11-02 07:03] LABS: ALBUMIN 2.1 g/dl (3.4-5.0); BLOOD UREA NITROGEN 74.4 mg/dL (7-18); MAGNESIUM 2.4 mg/dL (1.8-2.4)
[2023-11-02 07:05] LABS: PHOSPHOROUS 6.5 mg/dL (2.5-4.9)
[2023-11-02 07:06] LABS: CREATININE 4.8 mg/dL (0.55-1.3)
[2023-11-02 07:07] LABS: TOT PROT 5.5 g/dl (6.4-8.2)
[2023-11-02 07:18] LABS: BILIRUBIN,TOTAL 0.4 mg/dL (0.2-1)
[2023-11-02] MEDS ORDERED: SODIUM CHLORIDE 250 ML IV PRN (09:00)
[2023-11-02] MEDS ORDERED: EPOETIN ALFA-EPBX 10,000 UNIT/ML VIAL SQ ONE (09:00)
[2023-11-02 09:28] LABS: ANISOCYTOSIS 1+; MACROCYTOSIS 1+
[2023-11-02] MEDS: PANTOPRAZOLE SODIUM 40 MG VIAL IVPUSH SCH (11:24)
[2023-11-02] MEDS: HEPARIN NA (PORCINE) 5,000 UNITS/ML 1ML VIAL SQ SCH ×2 (11:25→20:59)
[2023-11-02] MEDS: methylPREDNISolone NA SUCC 40 MG/1 ML VIAL IVPUSH SCH (11:25)
[2023-11-02] MEDS: AMINO ACIDS/PROTEIN HYDROLYS 30 ML LIQUID.PKT PO SCH ×2 (14:23→14:25)
[2023-11-02] MEDS: VITAMIN B COMP W-C 1 EA TABLET (NEPHRO-VITE) PO SCH (14:24)
[2023-11-02] MEDS: CHLORHEXIDINE GLUCONATE 4% CLEANSER FOR DECOLONIZATION TP SCH (21:00)
[2023-11-03] MEDS: PIPERACILLIN/TAZOB 2.25 GM 2.25 GM in DEXTROSE 5%-WATER - 50 ML IVPB SCH ×3 (01:02→17:24)
[2023-11-03] MEDS: methylPREDNISolone NA SUCC 40 MG/1 ML VIAL IVPUSH SCH (09:11)
[2023-11-03] MEDS: HEPARIN NA (PORCINE) 5,000 UNITS/ML 1ML VIAL SQ SCH ×2 (09:11→21:27)
[2023-11-03] MEDS: PANTOPRAZOLE SODIUM 40 MG VIAL IVPUSH SCH (09:11)
[2023-11-03] MEDS: AMINO ACIDS/PROTEIN HYDROLYS 30 ML LIQUID.PKT PO SCH ×2 (09:12→17:24)
[2023-11-03] MEDS: VITAMIN B COMP W-C 1 EA TABLET (NEPHRO-VITE) PO SCH (09:12)
[2023-11-03] MEDS ORDERED: SODIUM CHLORIDE 250 ML IV PRN (15:23)
[2023-11-03] MEDS: CHLORHEXIDINE GLUCONATE 4% CLEANSER FOR DECOLONIZATION TP SCH (21:27)
[2023-11-04] MEDS: PIPERACILLIN/TAZOB 2.25 GM 2.25 GM in DEXTROSE 5%-WATER - 50 ML IVPB SCH ×3 (02:33→17:21)
[2023-11-04] MEDS ORDERED: DEXTROSE 50%-WATER 25 GM/50 ML DISP.SYRIN IVPUSH ONE (06:50)
[2023-11-04] MEDS ORDERED: EPOETIN ALFA-EPBX 10,000 UNIT/ML VIAL SQ ONE (08:00)
[2023-11-04] MEDS: methylPREDNISolone NA SUCC 40 MG/1 ML VIAL IVPUSH SCH (11:08)
[2023-11-04] MEDS: AMINO ACIDS/PROTEIN HYDROLYS 30 ML LIQUID.PKT PO SCH ×3 (11:08→18:06)
[2023-11-04] MEDS: VITAMIN B COMP W-C 1 EA TABLET (NEPHRO-VITE) PO SCH (11:08)
[2023-11-04] MEDS: HEPARIN NA (PORCINE) 5,000 UNITS/ML 1ML VIAL SQ SCH ×2 (11:08→21:38)
[2023-11-04] MEDS: PANTOPRAZOLE 40 MG TABLET PO SCH (11:09)
[2023-11-04] MEDS ORDERED: methylPREDNISolone NA SUCC 40 MG/1 ML VIAL IVPUSH SCH (11:35)
[2023-11-04] MEDS: SCOPOLAMINE HYDROBROMIDE 1 PATCH PATCH.TD72 TD SCH (17:21)
[2023-11-04] MEDS: AMINO ACIDS 4.25%/D5W 1,000 ML IV SCH (18:22)
[2023-11-04] MEDS: CHLORHEXIDINE GLUCONATE 4% CLEANSER FOR DECOLONIZATION TP SCH (21:38)
[2023-11-05] MEDS: PIPERACILLIN/TAZOB 2.25 GM 2.25 GM in DEXTROSE 5%-WATER - 50 ML IVPB SCH ×2 (01:23→10:00)
[2023-11-05] MEDS: AMINO ACIDS/PROTEIN HYDROLYS 30 ML LIQUID.PKT PO SCH ×3 (09:58→18:36)
[2023-11-05] MEDS: VITAMIN B COMP W-C 1 EA TABLET (NEPHRO-VITE) PO SCH (10:00)
[2023-11-05] MEDS: PANTOPRAZOLE 40 MG TABLET PO SCH (10:00)
[2023-11-05] MEDS: HEPARIN NA (PORCINE) 5,000 UNITS/ML 1ML VIAL SQ SCH ×2 (10:00→22:33)
[2023-11-05] MEDS ORDERED: methylPREDNISolone NA SUCC 40 MG/1 ML VIAL IVPUSH SCH (11:35)
[2023-11-05 12:29] LABS: BASO % 0.7 % (0-2.0); EOS % 0.9 % (0-4.5); HEMATOCRIT 29.3 % (35.4-49); HEMOGLOBIN 9.3 GM/dL (11.7-16.9); LYMPH % 5.2 % (8-40); MCH 29.3 pg (25.7-33.7); MCHC 31.6 g/dl (32.0-35.9); MEAN CELL VOLUME 92.7 fl (80-96); MEAN PLT VOLUME 8.9 fl (7.5-11.1); MONO % 13.7 % (3.8-10.2); NEUT % 79.5 % (42.8-82.8); PLATELET COUNT 433 10^3/uL (134-434); RBC 3.16 M/mm3 (4.00-5.60); RDW 18.8 % (11.9-15.9); WHITE BLOOD COUNT 11.6 K/mm3 (4.0-10.0)
[2023-11-05 12:46] LABS: POTASSIUM 3.4 mmol/L (3.5-5.1)
[2023-11-05 12:48] LABS: CALCIUM 8.3 mg/dL (8.5-10.1)
[2023-11-05 12:49] LABS: MAGNESIUM 1.7 mg/dL (1.8-2.4)
[2023-11-05 12:52] LABS: CREATININE 3.5 mg/dL (0.55-1.3); PHOSPHOROUS 4.2 mg/dL (2.5-4.9)
[2023-11-05 12:53] LABS: BILIRUBIN,TOTAL 0.4 mg/dL (0.2-1); TOT PROT 5.2 g/dl (6.4-8.2)
[2023-11-05 12:57] LABS: BLOOD UREA NITROGEN 35.2 mg/dL (7-18)
[2023-11-05] MEDS ORDERED: MAGNESIUM 2GM/50ML STERILE WATER IVPB IVPB ONE (13:44)
[2023-11-05] MEDS: AMINO ACIDS 4.25%/D5W 1,000 ML IV SCH (14:34)
[2023-11-05] MEDS ORDERED: AMINO ACIDS/PROTEIN HYDROLYS 30 ML LIQUID.PKT PO SCH (17:30)
[2023-11-05] MEDS ORDERED: CHLORHEXIDINE GLUCONATE 4% CLEANSER FOR DECOLONIZATION TP SCH (22:00)
[2023-11-05] MEDS ORDERED: HEPARIN NA (PORCINE) 5,000 UNITS/ML 1ML VIAL SQ SCH (22:00)
[2023-11-06 08:55] LABS: BASO % 0.3 % (0-2.0); EOS % 0.9 % (0-4.5); HEMATOCRIT 30.6 % (35.4-49); HEMOGLOBIN 9.7 GM/dL (11.7-16.9); LYMPH % 5.1 % (8-40); MCH 29.3 pg (25.7-33.7); MCHC 31.7 g/dl (32.0-35.9); MEAN CELL VOLUME 92.7 fl (80-96); MEAN PLT VOLUME 8.6 fl (7.5-11.1); MONO % 11.2 % (3.8-10.2); NEUT % 82.5 % (42.8-82.8); PLATELET COUNT 395 10^3/uL (134-434); RDW 18.6 % (11.9-15.9); WHITE BLOOD COUNT 14.3 K/mm3 (4.0-10.0)
[2023-11-06 09:22] LABS: POTASSIUM 3.1 mmol/L (3.5-5.1)
[2023-11-06 09:24] LABS: CALCIUM 8.3 mg/dL (8.5-10.1)
[2023-11-06 09:25] LABS: ALBUMIN 2.2 g/dl (3.4-5.0); BLOOD UREA NITROGEN 53.9 mg/dL (7-18)
[2023-11-06 09:28] LABS: CREATININE 4.4 mg/dL (0.55-1.3)
[2023-11-06 09:29] LABS: BILIRUBIN,TOTAL 0.4 mg/dL (0.2-1); TOT PROT 5.4 g/dl (6.4-8.2)
[2023-11-06] MEDS ORDERED: methylPREDNISolone NA SUCC 40 MG/1 ML VIAL IVPUSH SCH (10:00)
[2023-11-06] MEDS ORDERED: VITAMIN B COMP W-C 1 EA TABLET (NEPHRO-VITE) PO SCH (10:00)
[2023-11-06] MEDS: AMINO ACIDS/PROTEIN HYDROLYS 30 ML LIQUID.PKT PO SCH ×3 (10:02→17:54)
[2023-11-06] MEDS: AMINO ACIDS 4.25%/D5W 1,000 ML IV SCH (10:02)
[2023-11-06] MEDS: HEPARIN NA (PORCINE) 5,000 UNITS/ML 1ML VIAL SQ SCH ×2 (10:03→22:32)
[2023-11-06] MEDS: PANTOPRAZOLE 40 MG TABLET PO SCH (10:04)
[2023-11-06] MEDS: VITAMIN B COMP W-C 1 EA TABLET (NEPHRO-VITE) PO SCH (10:05)
[2023-11-06] MEDS ORDERED: SODIUM CHLORIDE 250 ML IV PRN (16:39)
[2023-11-06] MEDS: KCL 10 MEQ IVPB 10 MEQ/100 ML INFUS.BAG IVPB SCH ×2 (17:53→19:05)
[2023-11-07] MEDS: AMINO ACIDS 4.25%/D5W 1,000 ML IV SCH (06:42)
[2023-11-07] MEDS: AMINO ACIDS/PROTEIN HYDROLYS 30 ML LIQUID.PKT PO SCH ×3 (08:00→17:41)
[2023-11-07] MEDS ORDERED: EPOETIN ALFA-EPBX 10,000 UNIT/ML VIAL IVPUSH ONE (08:45)
[2023-11-07 09:00] LABS: HEMATOCRIT 28.9 % (35.4-49); HEMOGLOBIN 9.1 GM/dL (11.7-16.9); MCH 29.5 pg (25.7-33.7); MCHC 31.6 g/dl (32.0-35.9); MEAN CELL VOLUME 93.4 fl (80-96); PLATELET COUNT 340 10^3/uL (134-434); RBC 3.09 M/mm3 (4.00-5.60); RDW 17.8 % (11.9-15.9); WHITE BLOOD COUNT 11.8 K/mm3 (4.0-10.0)
[2023-11-07 09:21] LABS: POTASSIUM 3.9 mmol/L (3.5-5.1)
[2023-11-07 09:23] LABS: CALCIUM 8.2 mg/dL (8.5-10.1)
[2023-11-07 09:24] LABS: ALBUMIN 2.2 g/dl (3.4-5.0); BLOOD UREA NITROGEN 76.7 mg/dL (7-18)
[2023-11-07 09:27] LABS: CREATININE 5.1 mg/dL (0.55-1.3)
[2023-11-07 09:28] LABS: BILIRUBIN,TOTAL 0.4 mg/dL (0.2-1)
[2023-11-07 09:29] LABS: TOT PROT 5.2 g/dl (6.4-8.2)
[2023-11-07] MEDS: HEPARIN NA (PORCINE) 5,000 UNITS/ML 1ML VIAL SQ SCH ×2 (09:55→22:15)
[2023-11-07] MEDS: PANTOPRAZOLE 40 MG TABLET PO SCH (13:44)
[2023-11-07] MEDS: VITAMIN B COMP W-C 1 EA TABLET (NEPHRO-VITE) PO SCH (13:44)
[2023-11-07] MEDS ORDERED: SCOPOLAMINE HYDROBROMIDE 1 PATCH PATCH.TD72 TD SCH ×2 (15:45)
[2023-11-07] MEDS: SILVER SULFADIAZINE 1% TOP CREAM 50 GM JAR TP SCH (17:41)
[2023-11-08] MEDS: AMINO ACIDS 4.25%/D5W 1,000 ML IV SCH (03:39)
[2023-11-08] MEDS: SILVER SULFADIAZINE 1% TOP CREAM 50 GM JAR TP SCH (09:46)
[2023-11-08] MEDS: VITAMIN B COMP W-C 1 EA TABLET (NEPHRO-VITE) PO SCH (09:46)
[2023-11-08] MEDS: AMINO ACIDS/PROTEIN HYDROLYS 30 ML LIQUID.PKT PO SCH ×3 (09:46→17:43)
[2023-11-08] MEDS: PANTOPRAZOLE 40 MG TABLET PO SCH (09:46)
[2023-11-08] MEDS: HEPARIN NA (PORCINE) 5,000 UNITS/ML 1ML VIAL SQ SCH ×2 (09:46→21:40)
[2023-11-08] MEDS ORDERED: SODIUM CHLORIDE 250 ML IV PRN ×2 (13:33→14:38)
[2023-11-08] MEDS ORDERED: EPOETIN ALFA-EPBX 10,000 UNIT/ML VIAL SQ ONE (14:45)
[2023-11-08 15:42] VITALS: RESP 18
[2023-11-09] MEDS: AMINO ACIDS/PROTEIN HYDROLYS 30 ML LIQUID.PKT PO SCH ×3 (08:39→17:30)
[2023-11-09] MEDS: PANTOPRAZOLE 40 MG TABLET PO SCH ×2 (09:13→12:31)
[2023-11-09] MEDS: VITAMIN B COMP W-C 1 EA TABLET (NEPHRO-VITE) PO SCH ×2 (09:13→12:31)
[2023-11-09] MEDS: SILVER SULFADIAZINE 1% TOP CREAM 50 GM JAR TP SCH ×2 (09:13→12:32)
[2023-11-09] MEDS: HEPARIN NA (PORCINE) 5,000 UNITS/ML 1ML VIAL SQ SCH ×2 (09:13→12:31)
[2023-11-09] MEDS ORDERED: EPOETIN ALFA-EPBX 10,000 UNIT/ML VIAL IVPUSH ONE (09:30)
[2023-11-09 09:43] LABS: HEMATOCRIT 29.7 % (35.4-49); HEMOGLOBIN 9.4 GM/dL (11.7-16.9); MCH 30.1 pg (25.7-33.7); MCHC 31.7 g/dl (32.0-35.9); MEAN CELL VOLUME 94.9 fl (80-96); MEAN PLT VOLUME 9.3 fl (7.5-11.1); PLATELET COUNT 238 10^3/uL (134-434); RBC 3.13 M/mm3 (4.00-5.60); RDW 19.6 % (11.9-15.9); WHITE BLOOD COUNT 9.8 K/mm3 (4.0-10.0)
[2023-11-09 10:04] LABS: POTASSIUM 3.6 mmol/L (3.5-5.1)
[2023-11-09 10:46] LABS: ALBUMIN 2.1 g/dl (3.4-5.0); CREATININE 4.4 mg/dL (0.55-1.3)
[2023-11-09 10:47] LABS: BLOOD UREA NITROGEN 72.6 mg/dL (7-18)
[2023-11-09 10:48] LABS: TOT PROT 5.2 g/dl (6.4-8.2)
[2023-11-09 10:49] LABS: BILIRUBIN,TOTAL 0.7 mg/dL (0.2-1); CALCIUM 8.4 mg/dL (8.5-10.1)
[2023-11-09 13:39] VITALS: BP 139/69; PULSE 86; TEMP 98.4
== END 2023-11-09 16:50 | DRG 871 ==
LOC: JER 04:31 → JERBED 06:15 → JICU 11:09 → J2W 10-28 22:22 → J8W 11-05 18:32
PROVIDERS: ADMIT Internal Medicine; ATTEND Internal Medicine
PROC: 02HV33Z Insertion of Infusion Device into Superior Vena Cava, Percutaneous Approach (ICD-10-PCS; principal; 2023-10-22)
PROC: B548ZZA Ultrasonography of Superior Vena Cava, Guidance (ICD-10-PCS; 2023-10-22)
PROC: 03HY32Z Insertion of Monitoring Device into Upper Artery, Percutaneous Approach (ICD-10-PCS; 2023-10-22)
PROC: 4A133B1 Monitoring of Arterial Pressure, Peripheral, Percutaneous Approach (ICD-10-PCS; 2023-10-22)
PROC: 4A133J1 Monitoring of Arterial Pulse, Peripheral, Percutaneous Approach (ICD-10-PCS; 2023-10-22)
PROC: 5A1D70Z Performance of Urinary Filtration, Intermittent, Less than 6 Hours Per Day (ICD-10-PCS; 2023-10-22)
PROC: 02H633Z Insertion of Infusion Device into Right Atrium, Percutaneous Approach (ICD-10-PCS; 2023-11-01)
PROC: B548ZZA Ultrasonography of Superior Vena Cava, Guidance (ICD-10-PCS; 2023-11-01)
DX: A41.9 Sepsis, unspecified organism (principal); E43 Unspecified severe protein-calorie malnutrition; G92.8 Other toxic encephalopathy; J18.9 Pneumonia, unspecified organism; J96.01 Acute respiratory failure with hypoxia; J96.02 Acute respiratory failure with hypercapnia; R65.21 Severe sepsis with septic shock; N18.6 End stage renal disease; E87.0 Hyperosmolality and hypernatremia; E87.21 Acute metabolic acidosis; N17.9 Acute kidney failure, unspecified; I12.0 Hypertensive chronic kidney disease with stage 5 chronic kidney disease or end stage renal disease; R64 Cachexia; Z68.1 Body mass index [BMI] 19.9 or less, adult; G20.A1 Parkinson's disease without dyskinesia, without mention of fluctuations; F02.A0 Dementia in other diseases classified elsewhere, mild, without behavioral disturbance, psychotic disturbance, mood disturbance, and anxiety; I49.5 Sick sinus syndrome; Z95.0 Presence of cardiac pacemaker; E87.5 Hyperkalemia; E88.09 Other disorders of plasma-protein metabolism, not elsewhere classified; E83.52 Hypercalcemia; Z95.2 Presence of prosthetic heart valve; E83.39 Other disorders of phosphorus metabolism; E83.42 Hypomagnesemia; D50.9 Iron deficiency anemia, unspecified; R13.12 Dysphagia, oropharyngeal phase
CPT/HCPCS: 0241U-QW; 36415; 36600; 71045-TC-FY; 74230-TC-FY; 76000-TC-FY; 80048; 80053; 81003; 82550; 82728; 82803; 82962; 83540; 83550; 83605; 83735; 84100; 84484; 85025; 85027; 85379; 85610; 85730; 86704; 86705; 86803; 86850; 86900; 86901; 87040; 87070; 87081; 87086; 87205; 87340; 87517; 87635; 87899; 92611-GN; 93005; 93010; 93306-TC; 94660; 97163-GP; 99285-25; C1750; G0480; J1644; J1756; Q5106

== ENCOUNTER 2023-11-15 13:13 | Inpatient (IN) | payer OTHER ==
[2023-11-15] MEDS ORDERED: CALCIUM GLUC IN NACL, ISO-OSM 1 GM/50 ML BAG IVPB ONE (13:24)
[2023-11-15] MEDS: ALBUTEROL SO4 2.5/IPRATROPIUM 0.5 INH SOL 3 ML VIAL.NEB. NEB SCH ×2 (13:25→20:35)
[2023-11-15] MEDS ORDERED: PIPERACILLIN/TAZOB 4.5 GM 4.5 GM/100 ML BAG IVPB ONE (13:36)
[2023-11-15] MEDS ORDERED: VANCOMYCIN 1 GRAM (PRE-DOCKED) 1,000 MG/250 ML BAG IVPB ONE (13:36)
[2023-11-15 13:38] LABS: VENOUS O2 SATURATION 77.8 % (70-80); VENOUS PH 7.393 (7.310-7.410)
[2023-11-15] MEDS: PIPERACILLIN/TAZOBACTAM 4.5 GM VIAL IVPB ONE (13:40)
[2023-11-15 13:41] LABS: BASO % 0.7 % (0-2.0); EOS % 2.8 % (0-4.5); HEMATOCRIT 33.3 % (35.4-49); HEMOGLOBIN 10.5 GM/dL (11.7-16.9); LYMPH % 8.5 % (8-40); MCH 29.8 pg (25.7-33.7); MCHC 31.5 g/dl (32.0-35.9); MEAN CELL VOLUME 94.6 fl (80-96); MEAN PLT VOLUME 8.1 fl (7.5-11.1); MONO % 5.7 % (3.8-10.2); NEUT % 82.3 % (42.8-82.8); PLATELET COUNT 46 10^3/uL (134-434); RBC 3.52 M/mm3 (4.00-5.60); RDW 18.9 % (11.9-15.9); WHITE BLOOD COUNT 8.8 K/mm3 (4.0-10.0)
[2023-11-15 13:58] LABS: POTASSIUM 3.7 mmol/L (3.5-5.1)
[2023-11-15 14:00] LABS: BLOOD UREA NITROGEN 52.3 mg/dL (7-18)
[2023-11-15 14:01] LABS: ALBUMIN 2.4 g/dl (3.4-5.0)
[2023-11-15 14:04] LABS: CREATININE 3.9 mg/dL (0.55-1.3)
[2023-11-15 14:05] LABS: BILIRUBIN,TOTAL 0.6 mg/dL (0.2-1); TOT PROT 6.4 g/dl (6.4-8.2)
[2023-11-15 14:23] LABS: INR 1.19 (0.83-1.09); PROTHROMBIN TIME (PATIENT) 13.8 SEC (9.7-13.0)
[2023-11-15 14:26] LABS: ACTIVATED PTT 36.8 SECONDS (25.2-36.5)
[2023-11-15] MEDS: VANCOMYCIN 1,000 MG in DEXTROSE 5%-WATER - 250 ML IVPB ONE (14:35)
[2023-11-15] MEDS: CALCIUM GLUC IN NACL, ISO-OSM 1 GM/50 ML BAG IVPB ONE (15:50)
[2023-11-15] MEDS: SODIUM CHLORIDE 0.9% 500 ML INFUS.BAG IV ONE (16:02)
[2023-11-15] MEDS ORDERED: PANTOPRAZOLE 40 MG TABLET PO ONE (16:07)
[2023-11-15] MEDS: PANTOPRAZOLE 40 MG TABLET PO SCH (16:22)
[2023-11-15 17:01] LABS: EPI CELLS 0 /uL (0-25.1); HYALINE CASTS 0 /uL (0-3.1); PH,URINE 7.5 (5.0-8.0); URINE APPEARANCE CLOUDY; URINE BACTERIA 2355 /uL (0-1359); URINE BILIRUBIN NEGATIVE (NEGATIVE); URINE COLOR YELLOW; URINE GLUCOSE (UA) NEGATIVE (NEGATIVE); URINE KETONE NEGATIVE (NEGATIVE); URINE LEUK ESTERASE 3+ (NEGATIVE); URINE NITRITE NEGATIVE (NEGATIVE); URINE PROTEIN 2+ (NEGATIVE); URINE RBC 112 /uL (0-23.9); URINE UROBILINOGEN 0.2 mg/dL (0.2-1.0); URINE WBC 1454 /uL (0-25.8)
[2023-11-15] MEDS ORDERED: PIPERACILLIN/TAZOB 2.25 GM 2.25 GM in DEXTROSE 5%-WATER - 50 ML IVPB SCH (18:00)
[2023-11-15 18:07] LABS: LACTIC ACID 2.7 mmol/L (0.4-2.0)
[2023-11-15] MEDS: AMINO ACIDS/PROTEIN HYDROLYS 30 ML LIQUID.PKT PO SCH (18:09)
[2023-11-15] MEDS: DEXTROSE 5%-0.45% SALINE 1,000 ML IV SCH (18:09)
[2023-11-15] MEDS: MEROPENEM 500 MG in DEXTROSE 5%-WATER 100 ML IVPB SCH (18:39)
[2023-11-15] MEDS: VANCOMYCIN 1,000 MG in DEXTROSE 5%-WATER - 250 ML IVPB SCH (18:42)
[2023-11-15] MEDS ORDERED: HEPARIN NA (PORCINE) 5,000 UNITS/ML 1ML VIAL SQ SCH (22:00)
[2023-11-15] MEDS: SILVER SULFADIAZINE 1% TOP CREAM 50 GM JAR TP SCH (23:00)
[2023-11-15] MEDS: CHLORHEXIDINE GLUCONATE 4% CLEANSER FOR DECOLONIZATION TP SCH (23:07)
[2023-11-15] MEDS: MUPIROCIN 2% TOPICAL OINTMENT FOR DECOLONIZATION NS SCH (23:07)
[2023-11-16 07:24] LABS: EOS % 4.2 % (0-4.5); HEMATOCRIT 27.4 % (35.4-49); HEMOGLOBIN 8.9 GM/dL (11.7-16.9); LYMPH % 4.8 % (8-40); MCH 30.2 pg (25.7-33.7); MCHC 32.4 g/dl (32.0-35.9); MEAN CELL VOLUME 93.4 fl (80-96); MONO % 4.3 % (3.8-10.2); NEUT % 85.7 % (42.8-82.8); PLATELET COUNT 59 10^3/uL (134-434); RBC 2.93 M/mm3 (4.00-5.60); RDW 18.3 % (11.9-15.9); WHITE BLOOD COUNT 12.1 K/mm3 (4.0-10.0)
[2023-11-16 07:29] LABS: BLOOD UREA NITROGEN 63.4 mg/dL (7-18); CALCIUM 8.2 mg/dL (8.5-10.1); MAGNESIUM 1.7 mg/dL (1.8-2.4)
[2023-11-16 07:32] LABS: CREATININE 4.5 mg/dL (0.55-1.3); PHOSPHOROUS 4.5 mg/dL (2.5-4.9)
[2023-11-16 07:33] LABS: TOT PROT 5.4 g/dl (6.4-8.2)
[2023-11-16 07:34] LABS: BILIRUBIN,TOTAL 0.6 mg/dL (0.2-1)
[2023-11-16 07:47] LABS: ALBUMIN 1.9 g/dl (3.4-5.0)
[2023-11-16] MEDS: MAGNESIUM SULF 50% (8.12 MEQ/2 ML-1 GM VIAL) IVPB ONE (08:01)
[2023-11-16] MEDS: PANTOPRAZOLE SODIUM 40 MG VIAL IVPUSH SCH (13:12)
[2023-11-16] MEDS: IRON SUCROSE INJECTION 300 MG in SODIUM CHLORIDE 235 ML IVPB ONE (17:12)
[2023-11-16] MEDS ORDERED: SODIUM CHLORIDE 250 ML IV PRN (17:27)
[2023-11-16] MEDS: DEXTROSE 50%-WATER - 25 GM/50 ML VIAL IVPUSH ONE (22:00)
[2023-11-16] MEDS ORDERED: DEXTROSE 50%-WATER 25 GM/50 ML DISP.SYRIN ONE (22:04)
[2023-11-16] MEDS: ACETAMINOPHEN 1000 MG/100 ML BAG IVPB PRN (22:52)
[2023-11-16] MEDS: DEXTROSE 10%-WATER - 1,000 ML IV SCH (22:53)
[2023-11-17 07:39] LABS: BASO % 0.5 % (0-2.0); EOS % 3.7 % (0-4.5); HEMATOCRIT 29.1 % (35.4-49); HEMOGLOBIN 9.3 GM/dL (11.7-16.9); LYMPH % 2.8 % (8-40); MCH 29.8 pg (25.7-33.7); MCHC 31.9 g/dl (32.0-35.9); MEAN CELL VOLUME 93.5 fl (80-96); MEAN PLT VOLUME 8.1 fl (7.5-11.1); MONO % 3.1 % (3.8-10.2); NEUT % 89.9 % (42.8-82.8); PLATELET COUNT 66 10^3/uL (134-434); RBC 3.11 M/mm3 (4.00-5.60); RDW 18.3 % (11.9-15.9); WHITE BLOOD COUNT 5.6 K/mm3 (4.0-10.0)
[2023-11-17 07:51] LABS: POTASSIUM 4.1 mmol/L (3.5-5.1)
[2023-11-17 07:54] LABS: CALCIUM 8.1 mg/dL (8.5-10.1)
[2023-11-17 07:55] LABS: ALBUMIN 1.8 g/dl (3.4-5.0); BLOOD UREA NITROGEN 64.9 mg/dL (7-18); MAGNESIUM 1.8 mg/dL (1.8-2.4)
[2023-11-17 07:58] LABS: CREATININE 5.2 mg/dL (0.55-1.3); PHOSPHOROUS 5.6 mg/dL (2.5-4.9)
[2023-11-17 07:59] LABS: TOT PROT 5.2 g/dl (6.4-8.2)
[2023-11-17 08:00] LABS: BILIRUBIN,TOTAL 0.5 mg/dL (0.2-1)
[2023-11-17] MEDS: VANCOMYCIN/WATER FOR INJ (PEG) 1,000 MG/200 ML BAG IVPB ONE (16:42)
[2023-11-17] MEDS: ALBUMIN HUMAN 25% 12.5 GM/50 ML VIAL IV SCH (18:10)
[2023-11-18 07:53] LABS: BASO % 0.5 % (0-2.0); EOS % 7.5 % (0-4.5); MCH 29.2 pg (25.7-33.7); MCHC 31.1 g/dl (32.0-35.9); MEAN CELL VOLUME 93.8 fl (80-96); MEAN PLT VOLUME 7.6 fl (7.5-11.1); MONO % 7.4 % (3.8-10.2); NEUT % 75.6 % (42.8-82.8); PLATELET COUNT 70 10^3/uL (134-434); RBC 3.41 M/mm3 (4.00-5.60); RDW 17.9 % (11.9-15.9); WHITE BLOOD COUNT 4.4 K/mm3 (4.0-10.0)
[2023-11-18 08:11] LABS: POTASSIUM 3.6 mmol/L (3.5-5.1)
[2023-11-18 08:12] LABS: CALCIUM 7.9 mg/dL (8.5-10.1)
[2023-11-18 08:16] LABS: CREATININE 3.2 mg/dL (0.55-1.3)
[2023-11-18 08:27] LABS: BLOOD UREA NITROGEN 27.1 mg/dL (7-18)
[2023-11-19 08:19] LABS: BASO % 0.3 % (0-2.0); EOS % 6.1 % (0-4.5); HEMATOCRIT 33.4 % (35.4-49); HEMOGLOBIN 10.4 GM/dL (11.7-16.9); LYMPH % 10.2 % (8-40); MCH 29.3 pg (25.7-33.7); MEAN CELL VOLUME 94.5 fl (80-96); NEUT % 76.4 % (42.8-82.8); PLATELET COUNT 88 10^3/uL (134-434); RBC 3.54 M/mm3 (4.00-5.60); RDW 17.9 % (11.9-15.9); WHITE BLOOD COUNT 5.6 K/mm3 (4.0-10.0)
[2023-11-19 08:37] LABS: POTASSIUM 3.1 mmol/L (3.5-5.1)
[2023-11-19 08:38] LABS: CALCIUM 7.7 mg/dL (8.5-10.1)
[2023-11-19 08:39] LABS: BLOOD UREA NITROGEN 29.1 mg/dL (7-18)
[2023-11-19 08:42] LABS: CREATININE 3.8 mg/dL (0.55-1.3)
[2023-11-19] MEDS ORDERED: SODIUM CHLORIDE 250 ML IV PRN (09:21)
[2023-11-19] MEDS: KCL 10 MEQ IVPB 10 MEQ/100 ML INFUS.BAG IVPB SCH (10:31)
[2023-11-20 08:51] LABS: HEMATOCRIT 27.1 % (35.4-49); HEMOGLOBIN 8.7 GM/dL (11.7-16.9); MCH 29.6 pg (25.7-33.7); MCHC 32.2 g/dl (32.0-35.9); MEAN PLT VOLUME 7.8 fl (7.5-11.1); PLATELET COUNT 74 10^3/uL (134-434); RBC 2.94 M/mm3 (4.00-5.60); RDW 17.5 % (11.9-15.9); WHITE BLOOD COUNT 5.5 K/mm3 (4.0-10.0)
[2023-11-20 09:25] LABS: POTASSIUM 4.1 mmol/L (3.5-5.1)
[2023-11-20 09:28] LABS: CALCIUM 8.1 mg/dL (8.5-10.1)
[2023-11-20 09:29] LABS: ALBUMIN 1.5 g/dl (3.4-5.0); BLOOD UREA NITROGEN 34.7 mg/dL (7-18)
[2023-11-20 09:32] LABS: CREATININE 4.4 mg/dL (0.55-1.3)
[2023-11-20] MEDS: EPOETIN ALFA-EPBX 4,000 UNIT/ML VIAL IVPUSH ONE (09:33)
[2023-11-20 09:34] LABS: BILIRUBIN,TOTAL 0.4 mg/dL (0.2-1); TOT PROT 4.8 g/dl (6.4-8.2)
[2023-11-20] MEDS: IRON SUCROSE INJECTION 300 MG in SODIUM CHLORIDE 235 ML IVPB ONE (13:27)
[2023-11-20] MEDS: DEXTROSE 10%-WATER - 1,000 ML IV SCH (14:29)
[2023-11-20] MEDS: VANCOMYCIN/WATER FOR INJ (PEG) 1,000 MG/200 ML BAG IVPB ONE (14:30)
[2023-11-20] MEDS: ALBUMIN HUMAN 25% 12.5 GM/50 ML VIAL IV SCH (16:03)
[2023-11-20] MEDS: COSYNTROPIN 0.25 MG VIAL IVPUSH ONE (19:59)
[2023-11-20] MEDS: HYDROCORTISONE SOD SUCCINATE 100 MG/2 ML VIAL IVPB SCH (23:55)
[2023-11-21] MEDS ORDERED: SODIUM CHLORIDE 250 ML IV PRN (12:33)
[2023-11-22] MEDS: EPOETIN ALFA-EPBX 3,000 UNIT/ML VIAL IVPUSH ONE (09:43)
[2023-11-23 07:51] LABS: BASO % 0.2 % (0-2.0); HEMATOCRIT 28.1 % (35.4-49); LYMPH % 8.2 % (8-40); MCH 29.7 pg (25.7-33.7); MCHC 32.1 g/dl (32.0-35.9); MEAN CELL VOLUME 92.7 fl (80-96); MEAN PLT VOLUME 9.6 fl (7.5-11.1); MONO % 5.8 % (3.8-10.2); NEUT % 85.8 % (42.8-82.8); PLATELET COUNT 106 10^3/uL (134-434); RBC 3.03 M/mm3 (4.00-5.60); RDW 17.3 % (11.9-15.9); WHITE BLOOD COUNT 10.5 K/mm3 (4.0-10.0)
[2023-11-23 07:57] LABS: POTASSIUM 3.2 mmol/L (3.5-5.1)
[2023-11-23 08:12] LABS: CALCIUM 8.6 mg/dL (8.5-10.1)
[2023-11-23 08:13] LABS: BLOOD UREA NITROGEN 13.6 mg/dL (7-18); MAGNESIUM 1.7 mg/dL (1.8-2.4)
[2023-11-23 08:16] LABS: CREATININE 2.4 mg/dL (0.55-1.3); PHOSPHOROUS 3.3 mg/dL (2.5-4.9)
[2023-11-23] MEDS: MAGNESIUM SULF 50% (8.12 MEQ/2 ML-1 GM VIAL) IVPB ONE (09:24)
[2023-11-23] MEDS: POTASSIUM CHLORIDE ORAL LIQUID 20 MEQ/15 ML PO ONE (15:24)
[2023-11-23] MEDS: MAGNESIUM OXIDE 400 MG TABLET (FP) PO ONE (15:25)
[2023-11-23] MEDS: DEXTROSE 10%-WATER - 1,000 ML IV SCH (15:25)
[2023-11-23] MEDS: DONEPEZIL HCL 10 MG TABLET (FP) PO SCH (22:40)
[2023-11-23] MEDS: MEMANTINE HCL 10 MG TABLET (FP) PO SCH (22:57)
[2023-11-24] MEDS: TEMAZEPAM 15 MG CAPSULE PO PRN (00:50)
[2023-11-24] MEDS ORDERED: SODIUM CHLORIDE 250 ML IV PRN (07:30)
[2023-11-24 08:38] LABS: HEMATOCRIT 26.6 % (35.4-49); HEMOGLOBIN 8.3 GM/dL (11.7-16.9); MCHC 31.3 g/dl (32.0-35.9); MEAN CELL VOLUME 92.9 fl (80-96); MEAN PLT VOLUME 9.5 fl (7.5-11.1); PLATELET COUNT 122 10^3/uL (134-434); RBC 2.86 M/mm3 (4.00-5.60); RDW 17.3 % (11.9-15.9); WHITE BLOOD COUNT 11.1 K/mm3 (4.0-10.0)
[2023-11-24 08:54] LABS: POTASSIUM 4.2 mmol/L (3.5-5.1)
[2023-11-24 08:59] LABS: BLOOD UREA NITROGEN 22.4 mg/dL (7-18); CALCIUM 8.1 mg/dL (8.5-10.1)
[2023-11-24 09:02] LABS: CREATININE 3.2 mg/dL (0.55-1.3)
[2023-11-24] MEDS: EPOETIN ALFA-EPBX 10,000 UNIT/ML VIAL SQ ONE (11:13)
[2023-11-24] MEDS: DEXTROSE 10%-WATER - 1,000 ML IV SCH (14:48)
[2023-11-24 15:46] VITALS: BMI 18.8
[2023-11-25 06:52] LABS: BASO % 0.2 % (0-2.0); HEMATOCRIT 28.5 % (35.4-49); HEMOGLOBIN 9.1 GM/dL (11.7-16.9); MCH 29.6 pg (25.7-33.7); MEAN CELL VOLUME 92.6 fl (80-96); MEAN PLT VOLUME 9.3 fl (7.5-11.1); NEUT % 83.8 % (42.8-82.8); PLATELET COUNT 145 10^3/uL (134-434); RBC 3.08 M/mm3 (4.00-5.60); RDW 17.4 % (11.9-15.9); WHITE BLOOD COUNT 12.5 K/mm3 (4.0-10.0)
[2023-11-25 07:00] LABS: POTASSIUM 4.3 mmol/L (3.5-5.1)
[2023-11-25 07:02] LABS: CALCIUM 8.7 mg/dL (8.5-10.1)
[2023-11-25 07:03] LABS: BLOOD UREA NITROGEN 14.8 mg/dL (7-18)
[2023-11-25 07:06] LABS: CREATININE 2.1 mg/dL (0.55-1.3)
[2023-11-25] MEDS: AMINO ACIDS/PROTEIN HYDROLYS 30 ML LIQUID.PKT PO SCH (09:17)
[2023-11-25] MEDS: PANTOPRAZOLE 40 MG TABLET PO SCH (10:54)
[2023-11-25] MEDS: HYDROCORTISONE SOD SUCCINATE 100 MG/2 ML VIAL IVPB SCH (21:43)
[2023-11-26] MEDS: ALBUTEROL SO4 2.5/IPRATROPIUM 0.5 INH SOL 3 ML VIAL.NEB. NEB SCH (08:05)
[2023-11-26 10:12] LABS: EOS % 0.2 % (0-4.5); HEMATOCRIT 29.5 % (35.4-49); HEMOGLOBIN 9.2 GM/dL (11.7-16.9); LYMPH % 6.6 % (8-40); MCH 29.4 pg (25.7-33.7); MCHC 31.4 g/dl (32.0-35.9); MEAN CELL VOLUME 93.9 fl (80-96); MEAN PLT VOLUME 8.8 fl (7.5-11.1); MONO % 7.9 % (3.8-10.2); NEUT % 85.3 % (42.8-82.8); PLATELET COUNT 159 10^3/uL (134-434); RBC 3.14 M/mm3 (4.00-5.60); RDW 17.6 % (11.9-15.9); WHITE BLOOD COUNT 10.4 K/mm3 (4.0-10.0)
[2023-11-26] MEDS: SILVER SULFADIAZINE 1% TOP CREAM 50 GM JAR TP SCH (10:31)
[2023-11-26 10:44] LABS: POTASSIUM 4.4 mmol/L (3.5-5.1)
[2023-11-26 10:46] LABS: CALCIUM 8.6 mg/dL (8.5-10.1)
[2023-11-26 10:49] LABS: CREATININE 2.9 mg/dL (0.55-1.3)
[2023-11-26] MEDS ORDERED: SODIUM CHLORIDE 250 ML IV PRN (13:25)
[2023-11-26] MEDS: CHLORHEXIDINE GLUCONATE 4% CLEANSER FOR DECOLONIZATION TP SCH (21:14)
[2023-11-26] MEDS: ALBUTEROL SO4 0.083% IH SOL 2.5 MG/3 ML VIAL.NEB. NEB ONE (22:00)
[2023-11-27] MEDS: EPOETIN ALFA-EPBX 3,000 UNIT/ML VIAL IVPUSH ONE (09:37)
[2023-11-27] MEDS: AMINO ACIDS 4.25%/D5W 1,000 ML IV SCH (15:54)
[2023-11-28] MEDS: HYDROCORTISONE SOD SUCCINATE 100 MG/2 ML VIAL IVPB SCH (17:00)
[2023-11-29] MEDS ORDERED: SODIUM CHLORIDE 250 ML IV PRN (08:28)
[2023-11-29 08:49] LABS: HEMATOCRIT 25.2 % (35.4-49); HEMOGLOBIN 8.2 GM/dL (11.7-16.9); MCH 30.1 pg (25.7-33.7); MCHC 32.6 g/dl (32.0-35.9); MEAN CELL VOLUME 92.4 fl (80-96); MEAN PLT VOLUME 8.3 fl (7.5-11.1); PLATELET COUNT 116 10^3/uL (134-434); RBC 2.73 M/mm3 (4.00-5.60); RDW 17.5 % (11.9-15.9)
[2023-11-29 09:07] LABS: POTASSIUM 3.2 mmol/L (3.5-5.1)
[2023-11-29] MEDS: EPOETIN ALFA-EPBX 10,000 UNIT/ML VIAL SQ ONE (09:10)
[2023-11-29 09:11] LABS: ALBUMIN 1.6 g/dl (3.4-5.0); BLOOD UREA NITROGEN 34.2 mg/dL (7-18)
[2023-11-29 09:14] LABS: CREATININE 2.6 mg/dL (0.55-1.3)
[2023-11-29 09:15] LABS: BILIRUBIN,TOTAL 0.9 mg/dL (0.2-1); TOT PROT 4.3 g/dl (6.4-8.2)
[2023-11-29 09:17] LABS: CALCIUM 7.3 mg/dL (8.5-10.1)
[2023-11-29] MEDS ORDERED: predniSONE 10 MG TABLET (UD) PO SCH (10:00)
[2023-11-29] MEDS: ALBUMIN HUMAN 25% 12.5 GM/50 ML VIAL IV SCH (12:57)
[2023-11-29] MEDS: KCL 10 MEQ IVPB 10 MEQ/100 ML INFUS.BAG IVPB SCH (12:58)
[2023-11-29] MEDS: HYDROCORTISONE SOD SUCCINATE 100 MG/2 ML VIAL IVPB ONE (17:31)
[2023-11-29] MEDS: IRON SUCROSE INJECTION 300 MG in SODIUM CHLORIDE 235 ML IVPB ONE (17:54)
[2023-11-30 07:01] LABS: BASO % 0.1 % (0-2.0); EOS % 2.3 % (0-4.5); HEMATOCRIT 31.7 % (35.4-49); HEMOGLOBIN 10.5 GM/dL (11.7-16.9); LYMPH % 7.2 % (8-40); MCH 31.4 pg (25.7-33.7); MCHC 33.2 g/dl (32.0-35.9); MEAN CELL VOLUME 94.6 fl (80-96); MEAN PLT VOLUME 8.6 fl (7.5-11.1); MONO % 8.8 % (3.8-10.2); NEUT % 81.6 % (42.8-82.8); PLATELET COUNT 125 10^3/uL (134-434); RBC 3.35 M/mm3 (4.00-5.60); RDW 17.7 % (11.9-15.9); WHITE BLOOD COUNT 10.7 K/mm3 (4.0-10.0)
[2023-11-30 07:19] LABS: POTASSIUM 3.2 mmol/L (3.5-5.1)
[2023-11-30 07:22] LABS: BLOOD UREA NITROGEN 26.5 mg/dL (7-18); CALCIUM 8.2 mg/dL (8.5-10.1)
[2023-11-30 07:26] LABS: CREATININE 2.2 mg/dL (0.55-1.3)
[2023-11-30] MEDS ORDERED: SODIUM CHLORIDE 250 ML IV PRN ×2 (10:55→16:00)
[2023-11-30] MEDS: FUROSEMIDE 40 MG/4 ML INJECTABLE VIAL IVPUSH ONE (12:39)
[2023-11-30] MEDS ORDERED: METOPROLOL TARTRATE 5 MG/5 ML VIAL IVPUSH PRN (14:24)
[2023-11-30] MEDS: ALBUMIN HUMAN 25% 12.5 GM/50 ML VIAL IV SCH (17:20)
[2023-11-30] MEDS: POTASSIUM CHLORIDE 20 MEQ in AMINO ACIDS 4.25%/D5W 1,000 ML IV SCH (17:55)
[2023-11-30] MEDS ORDERED: DEXTROSE 50%-WATER 25 GM/50 ML DISP.SYRIN ONE (18:41)
[2023-11-30] MEDS: DEXTROSE 50%-WATER 25 GM/50 ML DISP.SYRIN IVPUSH ONE (18:48)
[2023-12-01 06:34] LABS: HEMATOCRIT 31.2 % (35.4-49); HEMOGLOBIN 9.6 GM/dL (11.7-16.9); MCH 29.4 pg (25.7-33.7); MCHC 30.7 g/dl (32.0-35.9); MEAN CELL VOLUME 95.6 fl (80-96); MEAN PLT VOLUME 9.4 fl (7.5-11.1); PLATELET COUNT 85 10^3/uL (134-434); RBC 3.26 M/mm3 (4.00-5.60); RDW 20.9 % (11.9-15.9); WHITE BLOOD COUNT 21.3 K/mm3 (4.0-10.0)
[2023-12-01 06:53] LABS: CALCIUM 8.3 mg/dL (8.5-10.1)
[2023-12-01 06:54] LABS: BLOOD UREA NITROGEN 20.7 mg/dL (7-18)
[2023-12-01] MEDS ORDERED: EPOETIN ALFA-EPBX 10,000 UNIT/ML VIAL SQ ONE (07:40)
[2023-12-01] MEDS ORDERED: SODIUM CHLORIDE 250 ML IV PRN ×2 (07:40→09:26)
[2023-12-01 09:25] LABS: ANISOCYTOSIS 2+; MACROCYTOSIS 0
[2023-12-01] MEDS: EPOETIN ALFA-EPBX 10,000 UNIT/ML VIAL SQ ONE (11:02)
[2023-12-01] MEDS ORDERED: ALBUTEROL SO4 2.5/IPRATROPIUM 0.5 INH SOL 3 ML VIAL.NEB. NEB PRN (12:49)
[2023-12-01] MEDS: ALBUMIN HUMAN 25% 12.5 GM/50 ML VIAL IV SCH (13:49)
[2023-12-01] MEDS: DEXTROSE 50%-WATER 25 GM/50 ML DISP.SYRIN IVPUSH PRN (14:08)
[2023-12-01] MEDS: FUROSEMIDE 40 MG/4 ML INJECTABLE VIAL IVPUSH ONE (19:23)
[2023-12-01 22:20] VITALS: TEMP 97
[2023-12-02 03:50] VITALS: BP 57/35; PULSE 60; RESP 13
== END 2023-12-02 04:02 | disposition expired | DRG 871 ==
LOC: JER 13:13 → JERBED 15:27 → JICU 17:42 → J2W 11-17 03:36
PROVIDERS: ADMIT Internal Medicine; ATTEND Internal Medicine
PROC: 5A1D70Z Performance of Urinary Filtration, Intermittent, Less than 6 Hours Per Day (ICD-10-PCS; principal; 2023-11-21)
DX: A41.9 Sepsis, unspecified organism (principal); E43 Unspecified severe protein-calorie malnutrition; G92.8 Other toxic encephalopathy; J96.01 Acute respiratory failure with hypoxia; J96.02 Acute respiratory failure with hypercapnia; J69.0 Pneumonitis due to inhalation of food and vomit; N18.6 End stage renal disease; N39.0 Urinary tract infection, site not specified; E87.20 Acidosis, unspecified; N17.9 Acute kidney failure, unspecified; R64 Cachexia; Z68.1 Body mass index [BMI] 19.9 or less, adult; I24.89 Other forms of acute ischemic heart disease; E87.1 Hypo-osmolality and hyponatremia; G20.A1 Parkinson's disease without dyskinesia, without mention of fluctuations; F02.80 Dementia in other diseases classified elsewhere, unspecified severity, without behavioral disturbance, psychotic disturbance, mood disturbance, and anxiety; I49.5 Sick sinus syndrome; Z95.2 Presence of prosthetic heart valve; Z95.0 Presence of cardiac pacemaker; D69.6 Thrombocytopenia, unspecified; L89.150 Pressure ulcer of sacral region, unstageable; E83.42 Hypomagnesemia; B95.2 Enterococcus as the cause of diseases classified elsewhere; E88.09 Other disorders of plasma-protein metabolism, not elsewhere classified; R13.12 Dysphagia, oropharyngeal phase; D50.9 Iron deficiency anemia, unspecified
CPT/HCPCS: 0241U-QW; 36415; 71045-TC-FY; 74230-TC-FY; 80048; 80053; 81003; 82533; 82550; 82728; 82803; 82962; 83036; 83525; 83540; 83550; 83605; 83735; 84100; 84439; 84443; 84481; 84484; 85025; 85027; 85610; 85730; 86803; 86850; 86900; 86901; 87040; 87086; 87186; 87340; 87804; 92611-GN; 93005; 93010; 94640; 97116-GP; 97161-GP; 99285-25; G0480; J0131; J0834; J1756; P9047; Q5106